=== PATIENT | female | born 1945 | race Caucasian/White ===

== ENCOUNTER 2016-12-09 13:36 | Emergency (ER) | payer OTHER ==
[~2016-12-09] VITALS: Ht 162.6 cm; Wt 74.7 kg
[~2016-12-09 13:36] MED LIST: ASPIRIN EC325 MG PO; ATORVASTATIN CA20 MG PO; BENTYL20 MG PO; CALCIUM 500 MG1 EACH PO; CIPRO500 MG PO; DEPAKOTE ER500 MG PO; FLAGYL500 MG PO; FLUOXETINE HCL20 MG PO; LaMICtal PO; METFORMIN HCL1000 MG PO; OLANZAPINE20 MG PO; PEPCID20 MG PO; PROZAC40 MG PO; PROzac PO; ZOFRAN ODT4 MG PO; ZYPREXA10 MG PO; ZyPREXA PO
[2016-12-09 14:31] LABS: HEMATOCRIT 35.7 % (36.0-46.0); MCH 27.4 PG (29.0-34.0); MCHC 32.2 G/DL (30.0-36.0); MCV 85.2 FL (83-99); MEAN PLAT.VOLUME 9.8 uM^3 (9.5-12.4); PLATELET COUNT 286 K/uL (156-360); RBC DIS.WIDTH-CV 15.2 % (11.8-14.6); RBC DIS.WIDTH-SD 47.3 % (39-53); RED BLOOD COUNT 4.19 M/uL (3.80-5.20); WHITE BLOOD COUNT 6.7 K/uL (4.1-10.2)
[2016-12-09 14:49] LABS: CHLORIDE 108 mEq/L (99-109); POTASSIUM 4.5 mEq/L (3.7-5.4); SODIUM 142 mEq/L (136-147)
[2016-12-09 14:51] LABS: GLUCOSE 107 mg/dL (70-99)
[2016-12-09 14:52] LABS: ANION GAP 12 MEQ/L (2-14)
[2016-12-09 14:55] LABS: GFR ESTIMATE (CALCULATED) > 59 mL/min/
[2016-12-09 14:56] LABS: UREA NITROGEN (BUN) 17 mg/dL (9-23)
[2016-12-09 14:57] LABS: CREATINE KINASE 53 IU/L (1-294)
[2016-12-09] MEDS ORDERED: ULTRACET1 TABLET PO (15:48)
[2016-12-09] MEDS ORDERED: MOTRIN600 MG PO (15:48)
[2016-12-09 16:15] VITALS: BP 130/83
== END 2016-12-09 16:16 | disposition home or self-care (01) ==
LOC: RME 13:36 → EME 13:36 → RME 16:16
PROVIDERS: Physician Assistant
DX: M79.604 Pain in right leg (principal); M62.838 Other muscle spasm; E11.9 Type 2 diabetes mellitus without complications; Z86.73 Personal history of transient ischemic attack (TIA), and cerebral infarction without residual deficits; Z87.891 Personal history of nicotine dependence
CPT/HCPCS: 80048; 82550; 85027; 93971; 99281; 99284

== ENCOUNTER 2017-01-17 17:16 | Emergency (ER) | payer OTHER ==
[~2017-01-17] VITALS: Ht 162.6 cm; Wt 77.5 kg
[~2017-01-17 17:16] MED LIST changes: +MOTRIN600 MG PO; +ULTRACET1 TABLET PO
[2017-01-17] MEDS ORDERED: PERCOCET 5/31 TABLET PO (17:52)
[2017-01-17 19:38] VITALS: BP 161/84
== END 2017-01-17 19:00 | disposition home or self-care (01) ==
LOC: EME → EDBD 17:16 → EME 17:16
DX: S42.292A Other displaced fracture of upper end of left humerus, initial encounter for closed fracture (principal); W01.0XXA Fall on same level from slipping, tripping and stumbling without subsequent striking against object, initial encounter; E11.9 Type 2 diabetes mellitus without complications; Z87.891 Personal history of nicotine dependence
CPT/HCPCS: 73030; 99281; 99284; J1885

== ENCOUNTER 2017-01-24 17:33 | Emergency (ER) | payer OTHER ==
[~2017-01-24] VITALS: Ht 165.1 cm; Wt 89.0 kg
[~2017-01-24 17:33] MED LIST changes: +PERCOCET 5/31 TABLET PO
[2017-01-24 17:46] LABS: BASOPHIL COUNT 0.1 K/uL (0-0.1); EOSINOPHIL COUNT 0.5 K/uL (0-0.3); HEMATOCRIT 30.9 % (36.0-46.0); IMMATURE GRANULOCYTE (%) 0.6 % (0.0-0.7); IMMATURE GRANULOCYTE COUNT 0.1 K/uL; INSTRUMENT ABS NEUTROPHIL CT 4.5 K/uL; MCH 27.6 PG (29.0-34.0); MCHC 31.7 G/DL (30.0-36.0); MEAN PLAT.VOLUME 9.4 uM^3 (9.5-12.4); MONOCYTE (%) 10.1 % (3-12); MONOCYTE COUNT 0.8 K/uL (0-0.8); NEUTROPHIL (%) 56.8 % (45-76); NEUTROPHIL COUNT 4.5 K/uL (1.8-6.4); PLATELET COUNT 351 K/uL (156-360); RBC DIS.WIDTH-CV 15.9 % (11.8-14.6); RBC DIS.WIDTH-SD 50.4 % (39-53); RED BLOOD COUNT 3.55 M/uL (3.80-5.20); WHITE BLOOD COUNT 7.9 K/uL (4.1-10.2)
[2017-01-24 17:46] LABS: CREATININE 0.9 mg/dL (0.6-1.3); POTASSIUM 4.2 mEq/L (3.7-5.4)
[2017-01-24 17:54] LABS: POINT-OF-CARE METER ID UU14100415
[2017-01-24 17:56] LABS: AMYLASE 37 IU/L (1-118); CHLORIDE 105 mEq/L (99-109); POTASSIUM 4.1 mEq/L (3.7-5.4); PROTHROMBIN TIME 9.9 (9.2-11.2); PTT 24.8 (25-32); SODIUM 140 mEq/L (136-147)
[2017-01-24 17:57] LABS: GLUCOSE 124 mg/dL (70-99)
[2017-01-24 17:59] LABS: ANION GAP 11 MEQ/L (2-14)
[2017-01-24 18:01] LABS: GFR ESTIMATE (CALCULATED) > 59 mL/min/; SERUM ETHYL ALCOHOL < 10 mg/dL
[2017-01-24 18:02] LABS: UREA NITROGEN (BUN) 19 mg/dL (9-23)
[2017-01-24 18:04] LABS: LIPASE 25 U/L (1.0-51.0)
[2017-01-24 18:08] LABS: TROP-I INTERPRETATION NEGATIVE; TROPONIN-I < 0.01 ng/mL (0.0-0.30)
[2017-01-24 20:54] VITALS: BP 148/72
== END 2017-01-24 21:15 | disposition short-term general hospital (02) ==
LOC: EME 17:33
PROVIDERS: Emergency Medicine
DX: I63.511 Cerebral infarction due to unspecified occlusion or stenosis of right middle cerebral artery (principal); I63.231 Cerebral infarction due to unspecified occlusion or stenosis of right carotid arteries; R29.703 NIHSS score 3; H53.8 Other visual disturbances; I69.354 Hemiplegia and hemiparesis following cerebral infarction affecting left non-dominant side; S42.92XD Fracture of left shoulder girdle, part unspecified, subsequent encounter for fracture with routine healing; W19.XXXD Unspecified fall, subsequent encounter; E11.9 Type 2 diabetes mellitus without complications; E78.5 Hyperlipidemia, unspecified; F31.9 Bipolar disorder, unspecified; Z87.891 Personal history of nicotine dependence
CPT/HCPCS: 70450; 70496; 70498; 80047; 80048; 81003; 82150; 82948; 83605; 83690; 84484; 85025; 85610; 85730; 86900; 86901; 99281; 99285; G0480

== ENCOUNTER 2017-05-10 14:21 | Inpatient (IN) | payer OTHER ==
[~2017-05-10] VITALS: Ht 162.6 cm; Wt 78.5 kg
[2017-05-10 15:18] LABS: BASOPHIL COUNT 0.1 K/uL (0-0.1); EOSINOPHIL (%) 13.7 % (0-5); EOSINOPHIL COUNT 1.4 K/uL (0-0.3); HEMATOCRIT 32.5 % (36.0-46.0); IMMATURE GRANULOCYTE (%) 0.5 % (0.0-0.7); IMMATURE GRANULOCYTE COUNT 0.1 K/uL; INSTRUMENT ABS NEUTROPHIL CT 5.6 K/uL; LYMPHOCYTE COUNT 2.2 K/uL (1.0-2.8); MCH 26.9 PG (29.0-34.0); MCV 84.2 FL (83-99); MEAN PLAT.VOLUME 10.1 uM^3 (9.5-12.4); MONOCYTE (%) 8.6 % (3-12); MONOCYTE COUNT 0.9 K/uL (0-0.8); NEUTROPHIL (%) 54.9 % (45-76); NEUTROPHIL COUNT 5.6 K/uL (1.8-6.4); PLATELET COUNT 280 K/uL (156-360); RBC DIS.WIDTH-SD 49.3 % (39-53); RED BLOOD COUNT 3.86 M/uL (3.80-5.20); WHITE BLOOD COUNT 10.2 K/uL (4.1-10.2)
[2017-05-10 15:25] LABS: INTER. NORMALIZED RATIO 2.5; PROTHROMBIN TIME 28.7 SEC (10.2-12.9)
[2017-05-10 15:27] LABS: PTT 37.7 SEC (25-37)
[2017-05-10 15:28] LABS: CHLORIDE 109 mEq/L (99-109); POTASSIUM 4.8 mEq/L (3.7-5.4); SODIUM 142 mEq/L (136-147)
[2017-05-10 15:30] LABS: GLUCOSE 104 mg/dL (70-99)
[2017-05-10 15:31] LABS: ANION GAP 10 MEQ/L (2-14)
[2017-05-10 15:33] LABS: GFR ESTIMATE (CALCULATED) > 59 mL/min/
[2017-05-10 15:34] LABS: UREA NITROGEN (BUN) 18 mg/dL (9-23)
[2017-05-10 15:40] LABS: TROP-I INTERPRETATION NEGATIVE; TROPONIN-I < 0.01 ng/mL (0.0-0.30)
[2017-05-10] MEDS ORDERED: ATORVASTATIN CA20 MG PO (17:10)
[2017-05-10] MEDS ORDERED: ALPRAZOLAM0.25 M2 PO (17:11)
[2017-05-10] MEDS ORDERED: LO-DOSE ASPIRIN81 M1 PO (17:11)
[2017-05-10] MEDS ORDERED: COUMADIN5 MG PO (17:11)
[2017-05-10 21:08] VITALS: BP 185/74
[2017-05-10 21:50] LABS: RETIC HGB EQUIVALENT 28.8 (28-36); RETICULOCYTE COUNT 1.1 % (0.5-1.8)
[2017-05-10 22:08] LABS: TROP-I INTERPRETATION NEGATIVE; TROPONIN-I < 0.01 ng/mL (0.0-0.30)
[2017-05-10 23:43] VITALS: BP 121/67
[2017-05-11 04:22] VITALS: BP 139/81
[2017-05-11 04:24] LABS: INTER. NORMALIZED RATIO 2.5; PROTHROMBIN TIME 28.8 SEC (10.2-12.9)
[2017-05-11 04:53] LABS: TROP-I INTERPRETATION NEGATIVE; TROPONIN-I < 0.01 ng/mL (0.0-0.30)
[2017-05-11 05:29] LABS: HDL CHOLESTEROL 42 MG/DL (Desirable>=50); LDL CHOLESTEROL 71 mg/dL (Desirable<100); NON-HDL CHOLESTEROL 90 mg/dL (Desirable<160); TOTAL CHOLESTEROL 132 mg/dL (Desirable<200); TRIGLYCERIDES 95 MG/DL (Normal: <150)
[2017-05-11 06:59] LABS: Estimated Average Glucose 137 mg/dL (70-123); HEMOGLOBIN A1c (GLYCOHEMOGLOB) 6.4 % HGB (Below 5.7)
[2017-05-11 07:34] VITALS: BP 127/90
[2017-05-11 12:25] LABS: POINT-OF-CARE METER ID UU13113717
[2017-05-11 12:34] VITALS: BP 130/88
[2017-05-11 16:09] VITALS: BP 139/86
[2017-05-11 19:30] VITALS: BP 165/71
[2017-05-11 23:40] VITALS: BP 112/56
[2017-05-12 04:05] VITALS: BP 110/63
[2017-05-12 05:25] LABS: HEMATOCRIT 31.5 % (36.0-46.0); MCHC 33.3 G/DL (30.0-36.0); MEAN PLAT.VOLUME 9.9 uM^3 (9.5-12.4); PLATELET COUNT 267 K/uL (156-360); RBC DIS.WIDTH-CV 16.3 % (11.8-14.6); RBC DIS.WIDTH-SD 49.4 % (39-53); RED BLOOD COUNT 3.75 M/uL (3.80-5.20); WHITE BLOOD COUNT 7.2 K/uL (4.1-10.2)
[2017-05-12 05:31] LABS: INTER. NORMALIZED RATIO 2.7; PROTHROMBIN TIME 30.8 SEC (10.2-12.9)
[2017-05-12 08:24] VITALS: BP 132/70
[2017-05-12] MEDS ORDERED: ASPIRIN325 MG PO (12:49)
[2017-05-12] MEDS ORDERED: ELIQUIS5 MG PO (14:13)
== END 2017-05-12 16:32 | disposition home or self-care (01) | DRG 65 ==
LOC: EME 14:21 → EDOF 16:32 → ENRESERV 16:33 → CANRESERV 16:44 → EDOF 19:09 → 5SOUTH 19:09 → EDOF 19:09 → ENRESERV 19:10 → 5SOUTH 20:09 → ENPENDDIS 05-12 → 5SOUTH 05-12 16:32
PROVIDERS: Emergency Medicine; Internal Medicine; Physician Assistant Medical
DX: I63.40 Cerebral infarction due to embolism of unspecified cerebral artery (principal); I69.354 Hemiplegia and hemiparesis following cerebral infarction affecting left non-dominant side; F33.9 Major depressive disorder, recurrent, unspecified; I65.23 Occlusion and stenosis of bilateral carotid arteries; E11.9 Type 2 diabetes mellitus without complications; E78.5 Hyperlipidemia, unspecified; F41.9 Anxiety disorder, unspecified; Z79.01 Long term (current) use of anticoagulants; Z87.891 Personal history of nicotine dependence; Z88.0 Allergy status to penicillin; Z79.84 Long term (current) use of oral hypoglycemic drugs; Z79.4 Long term (current) use of insulin; Z79.82 Long term (current) use of aspirin
CPT/HCPCS: 70450; 70498; 70551; 71010; 80048; 80061; 82607; 82728; 82746; 82948; 83036; 84484; 85025; 85027; 85045; 85610; 85730; 92523 GN; 93005; 93306; 93880; 99281; 99284; J1815

== ENCOUNTER 2017-08-19 14:43 | Observation (INO) | payer OTHER ==
[~2017-08-19] VITALS: Ht 165.1 cm; Wt 83.8 kg
[~2017-08-19 14:43] MED LIST changes: +ALPRAZOLAM0.25 M2 PO; +ASPIRIN325 MG PO; +ATORVASTATIN CA40 MG PO; +COUMADIN5 MG PO; +ELIQUIS5 MG PO; +LO-DOSE ASPIRIN81 M1 PO
[2017-08-19 15:10] LABS: BASOPHIL COUNT 0.1 K/uL (0-0.1); EOSINOPHIL (%) 2.6 % (0-5); EOSINOPHIL COUNT 0.3 K/uL (0-0.3); HEMATOCRIT 34.2 % (36.0-46.0); IMMATURE GRANULOCYTE (%) 0.6 % (0.0-0.7); IMMATURE GRANULOCYTE COUNT 0.1 K/uL; INSTRUMENT ABS NEUTROPHIL CT 9.3 K/uL; LYMPHOCYTE COUNT 0.7 K/uL (1.0-2.8); MCHC 31.6 G/DL (30.0-36.0); MCV 85.5 FL (83-99); MONOCYTE COUNT 0.8 K/uL (0-0.8); NEUTROPHIL (%) 82.9 % (45-76); NEUTROPHIL COUNT 9.3 K/uL (1.8-6.4); PLATELET COUNT 267 K/uL (156-360); RBC DIS.WIDTH-CV 15.7 % (11.8-14.6); RBC DIS.WIDTH-SD 49.1 % (39-53); WHITE BLOOD COUNT 11.2 K/uL (4.1-10.2)
[2017-08-19 15:19] LABS: AMYLASE 35 IU/L (1-118); CHLORIDE 104 mEq/L (99-109); SODIUM 136 mEq/L (136-147)
[2017-08-19 15:20] LABS: GLUCOSE 115 mg/dL (70-99)
[2017-08-19 15:22] LABS: ANION GAP 13 MEQ/L (2-14)
[2017-08-19 15:23] LABS: SERUM ETHYL ALCOHOL < 10 mg/dL
[2017-08-19 15:24] LABS: GFR ESTIMATE (CALCULATED) > 59 mL/min/
[2017-08-19 15:25] LABS: UREA NITROGEN (BUN) 15 mg/dL (9-23)
[2017-08-19 15:26] LABS: INTER. NORMALIZED RATIO 1.6; PROTHROMBIN TIME 18.2 SEC (10.2-12.9)
[2017-08-19 15:27] LABS: LIPASE 26 U/L (1.0-51.0)
[2017-08-19 15:33] LABS: TROP-I INTERPRETATION NEGATIVE; TROPONIN-I < 0.01 ng/mL (0.0-0.30)
[2017-08-19 16:15] LABS: ADD MIUA? YES; BILIRUBIN NEGATIVE; BLOOD SMALL; COLOR STRAW ((YELLOW)); GLUCOSE (STRIP) NEGATIVE; KETONES NEGATIVE; LEUKOCYTES TRACE; NITRITE NEGATIVE; PROTEIN (STRIP) NEGATIVE; SPECIFIC GRAVITY 1.009 (1.000-1.030); UROBILINOGEN 0.2 MG/DL (0.2-1.0)
[2017-08-19 16:21] LABS: BACTERIA NONE SEEN /HPF; EPITHELIAL CELLS NONE SEEN /HPF; MUCUS NONE SEEN /LPF; RED BLOOD CELLS 0-5 /HPF (0-5); UCUL ADDED? YES
[2017-08-19 16:27] LABS: AMPHETAMINE NEGATIVE (500 ng/mL); BARBITURATES NEGATIVE (200 ng/mL); BENZODIAZEPINES PRESUMPTIVE POSITIVE (150 ng/mL); COCAINE NEGATIVE (150 ng/mL); METHADONE NEGATIVE (200 ng/mL); METHAMPHETAMINE NEGATIVE (500 ng/mL); OPIATES (MORPHINE) NEGATIVE (100 ng/mL); PHENCYCLIDINE NEGATIVE (25 ng/mL); THC CANNABINOIDS NEGATIVE (50 ng/mL); TRICYCLIC ANTIDEPRESSANTS NEGATIVE (300 ng/mL)
[2017-08-19 16:28] LABS: ADD MEDTOX COMMENT Y; INTERNAL CONTROLS VALID? YES; OXYCODONE NEGATIVE (100 ng/mL); PROPOXYPHENE NEGATIVE (300 ng/mL)
[2017-08-19 16:52] LABS: BENZODIAZEPINES QUANT VALUE 0 NG/ML; BENZODIAZEPINES, URINE SCREEN Negative (200 ng/mL)
[2017-08-19] MEDS ORDERED: ASPIRIN325 MG PO (17:31)
[2017-08-19] MEDS ORDERED: FAMOTIDINE20 MG PO (17:36)
[2017-08-19 18:50] LABS: HDL CHOLESTEROL 49 MG/DL (Desirable>=50); LDL CHOLESTEROL 72 mg/dL (Desirable<100); NON-HDL CHOLESTEROL 99 mg/dL (Desirable<160); TOTAL CHOLESTEROL 148 mg/dL (Desirable<200); TRIGLYCERIDES 136 MG/DL (Normal: <150)
[2017-08-19 18:51] LABS: Estimated Average Glucose 134 mg/dL (70-123); HEMOGLOBIN A1c (GLYCOHEMOGLOB) 6.3 % HGB (Below 5.7)
[2017-08-19 19:06] VITALS: BP 131/75
[2017-08-19 21:08] LABS: TROP-I INTERPRETATION NEGATIVE; TROPONIN-I 0.04 ng/mL (0.0-0.30)
[2017-08-19 23:21] VITALS: BP 135/86
[2017-08-20 03:25] LABS: TROP-I INTERPRETATION NEGATIVE; TROPONIN-I 0.05 ng/mL (0.0-0.30)
[2017-08-20 03:45] VITALS: BP 136/72
[2017-08-20 08:28] LABS: POINT-OF-CARE METER ID UU13113700
[2017-08-20 08:45] VITALS: BP 120/59
[2017-08-20 10:29] LABS: GFR ESTIMATE (CALCULATED) > 59 mL/min/
[2017-08-20 11:20] VITALS: BP 105/56
[2017-08-20 11:43] VITALS: BP 107/58
[2017-08-20 12:30] LABS: POINT-OF-CARE METER ID UU13113831
[2017-08-20] MEDS ORDERED: LEVAQUIN750 MG PO (13:11)
== END 2017-08-20 14:42 | disposition home or self-care (01) ==
LOC: EME → EDBD 14:43 → EDOF 17:06 → ENRESERV 17:07 → EDOF 17:14 → ENRESERV 17:23 → 5WEST 18:56
PROVIDERS: Emergency Medicine; Internal Medicine; Student in an Organized Health Care Education/Training Program
DX: G45.9 Transient cerebral ischemic attack, unspecified (principal); I65.21 Occlusion and stenosis of right carotid artery; N39.0 Urinary tract infection, site not specified; Z86.73 Personal history of transient ischemic attack (TIA), and cerebral infarction without residual deficits; E11.9 Type 2 diabetes mellitus without complications; Z87.891 Personal history of nicotine dependence; F32.9 Major depressive disorder, single episode, unspecified; D64.9 Anemia, unspecified; Z88.0 Allergy status to penicillin
CPT/HCPCS: 70450; 70496; 70498; 70551; 80048; 80061; 81003; 82150; 82565; 82948; 83036; 83690; 84484; 84999; 85025; 85610; 85730; 86850; 86900; 86901; 87086; 93005; 94799; 99281; 99285; G0378; G0480; G8978 GP CJ; G8979 GP CI; J1956

== ENCOUNTER 2017-11-20 20:35 | Observation (INO) | payer OTHER ==
[~2017-11-20] VITALS: Ht 160 cm; Wt 65.5 kg
[~2017-11-20 20:35] MED LIST changes: -ATORVASTATIN CA40 MG PO; +FAMOTIDINE20 MG PO; +LEVAQUIN750 MG PO
[2017-11-20 21:30] LABS: HEMATOCRIT 29.5 % (36.0-46.0); HEMOGLOBIN 9.5 G/DL (11.9-15.5); MCH 26.8 PG (29.0-34.0); MCHC 32.2 G/DL (30.0-36.0); MCV 83.1 FL (83-99); PLATELET COUNT 297 K/uL (156-360); RBC DIS.WIDTH-CV 16.8 % (11.8-14.6); RBC DIS.WIDTH-SD 51.2 % (39-53); RED BLOOD COUNT 3.55 M/uL (3.80-5.20); WHITE BLOOD COUNT 7.9 K/uL (4.1-10.2)
[2017-11-20 21:46] LABS: INTER. NORMALIZED RATIO 1.6
[2017-11-20 21:49] LABS: PTT 32.5 SEC (25-37)
[2017-11-20 22:03] LABS: CHLORIDE 107 MEQ/L (99-109); POTASSIUM 4.6 MEQ/L (3.7-5.4); SODIUM 141 MEQ/L (136-147)
[2017-11-20 22:08] LABS: CREATININE 0.9 MG/DL (0.6-1.3); GFR ESTIMATE (CALCULATED) > 59 mL/min/; GLUCOSE 135 mg/dL (70-99); HDL CHOLESTEROL 39 MG/DL (Desirable>=50); LDL CHOLESTEROL 69 mg/dL (Desirable<100); NON-HDL CHOLESTEROL 89 mg/dL (Desirable<160); TOTAL CHOLESTEROL 128 mg/dL (Desirable<200); TRIGLYCERIDES 102 MG/DL (Normal: <150); UREA NITROGEN (BUN) 19 mg/dL (9-23)
[2017-11-21 04:00] VITALS: BP 165/70
[2017-11-21 07:28] LABS: TROP-I INTERPRETATION NEGATIVE; TROPONIN-I < 0.01 ng/mL (0.0-0.30)
[2017-11-21 08:04] VITALS: BP 199/80
[2017-11-21 10:00] LABS: HEMOGLOBIN A1c (GLYCOHEMOGLOB) 6.7 % (Below 5.7)
[2017-11-21 11:12] LABS: APPEARANCE CLEAR ((CLEAR)); BILIRUBIN NEGATIVE; BLOOD NEGATIVE; COLOR STRAW ((YELLOW)); GLUCOSE (STRIP) NEGATIVE; KETONES NEGATIVE; LEUKOCYTES NEGATIVE; NITRITE NEGATIVE; PROTEIN (STRIP) NEGATIVE; SPECIFIC GRAVITY 1.013 (1.000-1.030); UCUL ADDED? NO; UROBILINOGEN 0.2 MG/DL (0.2-1.0)
[2017-11-21] MEDS ORDERED: COLACE100 MG PO (11:31)
[2017-11-21 11:55] VITALS: BP 146/69
[2017-11-21 12:42] LABS: TROP-I INTERPRETATION NEGATIVE; TROPONIN-I < 0.01 ng/mL (0.0-0.30)
== END 2017-11-21 13:43 | disposition home or self-care (01) ==
LOC: EME → EDBD 20:35 → EME 20:35 → EDOF 11-21 02:37 → 5WEST 11-21 02:37 → EDOF 11-21 02:37 → ENRESERV 11-21 02:38 → 5WEST 11-21 03:51
PROVIDERS: Emergency Medicine; Hospitalist
DX: G45.9 Transient cerebral ischemic attack, unspecified (principal); I65.21 Occlusion and stenosis of right carotid artery; E11.9 Type 2 diabetes mellitus without complications; I10 Essential (primary) hypertension; Z86.73 Personal history of transient ischemic attack (TIA), and cerebral infarction without residual deficits; E78.5 Hyperlipidemia, unspecified; Z87.891 Personal history of nicotine dependence; Z88.0 Allergy status to penicillin
CPT/HCPCS: 70450; 70496; 70498; 70551; 71046; 80048; 80061; 80061 GA; 81003; 82948; 83036; 84484; 85027; 85610; 85730; 93005; 99281; 99285; G0378

== ENCOUNTER 2017-12-28 08:48 | Emergency (ER) | payer OTHER ==
[~2017-12-28] VITALS: Ht 160 cm; Wt 83.7 kg
[~2017-12-28 08:48] MED LIST changes: +COLACE100 MG PO
[2017-12-28 09:36] LABS: HEMATOCRIT 31.7 % (36.0-46.0); MCH 26.4 PG (29.0-34.0); MCHC 31.5 G/DL (30.0-36.0); MCV 83.6 FL (83-99); PLATELET COUNT 319 K/uL (156-360); RBC DIS.WIDTH-CV 16.9 % (11.8-14.6); RBC DIS.WIDTH-SD 51.4 % (39-53); RED BLOOD COUNT 3.79 M/uL (3.80-5.20); WHITE BLOOD COUNT 8.1 K/uL (4.1-10.2)
[2017-12-28 10:06] LABS: TROP-I INTERPRETATION NEGATIVE; TROPONIN-I < 0.01 ng/mL (0.0-0.30)
[2017-12-28 10:11] LABS: ALBUMIN 3.9 G/DL (3.2-4.8); ALKALINE PHOSPHATASE 70 IU/L (3-129); ALT (GPT) 11 IU/L (3-49); AST (GOT) 11 IU/L (2-34); CHLORIDE 106 MEQ/L (99-109); CREATININE 0.9 MG/DL (0.6-1.3); GFR ESTIMATE (CALCULATED) > 59 mL/min/; GLUCOSE 162 mg/dL (70-99); LIPASE 25 U/L (1.0-51.0); SODIUM 139 MEQ/L (136-147); TOTAL BILIRUBIN 0.2 MG/DL (0.0-1.0); TOTAL PROTEIN 7.5 G/DL (6.4-8.3); UREA NITROGEN (BUN) 15 mg/dL (9-23)
[2017-12-28 10:48] LABS: APPEARANCE CLEAR ((CLEAR)); BILIRUBIN NEGATIVE; BLOOD NEGATIVE; COLOR YELLOW ((YELLOW)); GLUCOSE (STRIP) NEGATIVE; KETONES NEGATIVE; LEUKOCYTES NEGATIVE; NITRITE NEGATIVE; PROTEIN (STRIP) NEGATIVE; SPECIFIC GRAVITY 1.014 (1.000-1.030); UCUL ADDED? NO; UROBILINOGEN 0.2 MG/DL (0.2-1.0)
[2017-12-28] MEDS ORDERED: MIRALAX17 GM PO (12:02)
[2017-12-28] MEDS ORDERED: ADULT GLYCERIN1 EACH PR (12:02)
[2017-12-28 13:18] VITALS: BP 134/59
== END 2017-12-28 13:19 | disposition home or self-care (01) ==
LOC: EME 08:48
PROVIDERS: Physician Assistant
DX: K59.00 Constipation, unspecified (principal); R10.9 Unspecified abdominal pain; R06.02 Shortness of breath; K21.9 Gastro-esophageal reflux disease without esophagitis; E11.9 Type 2 diabetes mellitus without complications; E78.5 Hyperlipidemia, unspecified; F31.9 Bipolar disorder, unspecified; F41.9 Anxiety disorder, unspecified; F32.9 Major depressive disorder, single episode, unspecified; Z87.891 Personal history of nicotine dependence; Z86.73 Personal history of transient ischemic attack (TIA), and cerebral infarction without residual deficits; Z79.84 Long term (current) use of oral hypoglycemic drugs; Z79.82 Long term (current) use of aspirin; Z88.0 Allergy status to penicillin
CPT/HCPCS: 71046; 71275; 74177; 80053; 81003; 83690; 84484; 85027; 87040; 93005; 99281; 99284; J7030